=== PATIENT | male | born 1955 | race Two or more races ===

== ENCOUNTER → 2017-10-04 12:53 | Outpatient (POV) | payer MEDICAID, SELFPAY ==
[2017-10-04 13:00] VITALS: BP 125/78; PULSE 84; RESP 16; TEMP 36.3; O2SAT 97; BMI 23.9
--- NOTE | 2017-10-04 13:35 | HMH.PMCON ---
Assessment and Plan (1) Intervertebral disc protrusion Current visit: Yes Status: Chronic Category: Medical (2) Degenerative disc disease, cervical Current visit: Yes Status: Chronic Category: Medical Code(s): M50.30 - Other cervical disc degeneration, unspecified cervical region (3) Cervical radiculopathy Current visit: Yes Status: Chronic Category: Medical Code(s): M54.12 - Radiculopathy, cervical region - Assessment and plan all Dx Assessment and Plan for all problems:: We will plan a cervical epidural steroid injection at C5-C6. Patient is interested in injective therapies. Patient has tried and failed physical therapy along with anti-inflammatory medications. Giving the patient's symptomology and pathology on MRI believe this injection would be very helpful and some long-term relief of his pain symptoms. We will follow-up with him 2 weeks after his injection. This note was dictated using voice recognition software and may contain errors or omissions HPI - Data of Consult Consult date: 10/04/17 Requesting Physician: Pennie Trevizo APRN Primary Care Provider: Katelyn Fortune MD Family Provider: Alexa Kaur MD - Consult Narrative Reason for consult: Neck pain, right arm pain History of present illness: Mr. Harshil Paredes is a 62 year old male who presents today with a complaint of neck pain and right arm pain. Patient has a torn rotator cuff on the right side. He is currently being evaluated by or so for potential repair. Patient is seen Dr. Sultana in the past however at the time he was not a surgical candidate. Patient does have an MRI with noted pathology at his neck. Patient does have pain in the base of his neck radiating down all the way to the fingertips on his right hand. Patient states he has numbness and tingling at times also he has weakness at times. Patient rates his pain a 6 out of 10 today. Patient has tried physical therapy in the past with minimal relief. Patient also is taking anti-inflammatories. CC: Pennie Trevizo APRN [facility] History I have reviewed the patient's past medical history: Yes Medical History: Denies:: Cancer, Diabetes Mellitus Type 1, Diabetes Mellitus Type 2, MRSA Other Medical History: Reports: Arthritis, Other Other Surgeries: Yes: No Previous Surgery Amputation: No Fractures: No - *Social History Educational Level: Attended Grade School Smoking Status: Never smoker Alcohol Intake: never Substance Use Type: denies use Occupational Status: unemployed Housing: apartment Household Members: spouse - Psychiatric History Expresses thoughts of harming self/others: None Suicide Plan Description: No Plan *Family Hx:: No significant family history Review of Systems - Review of Systems ROS General: no recent weight change, no fever, no sleep disturbances Respiratory: no cough, no shortness of air, no recurring pulmonary infections Cardiovascular/Peripheral Vascular: No chest pain, No palpitations, no edema, no shortness of breath. Gastrointestinal: no incontinence, normal bowel movements reported Genitourinary: no incontinence Musculoskeletal: Neck pain, right shoulder pain, right arm pain Psychiatric: normal mood/ affect, [denies depression], [denies anxiety] Neurological: Weakness at times in right upper extremity, [denies balance issues] Meds Home Medications Medication Instructions Recorded Confirmed Type Naproxen 500 mg PO NEEDED PRN 10/04/17 10/04/17 History Allergies Allergy/AdvReac Type Severity Reaction Status Date / Time No Known Allergies Allergy Verified 09/23/17 15:50 Objective Vital signs: Temp Pulse Resp BP Pulse Ox 97.4 F L 84 16 125/78 97 10/04/17 13:00 10/04/17 13:00 10/04/17 13:00 10/04/17 13:00 10/04/17 13:00 Narrative: Physical Exam General: Alert and oriented x3, no acute distress, pleasant and cooperative, [on room air] Lungs: Resps E
--- NOTE | 2017-10-04 13:40 | P.CONS_ITS ---
Assessment and Plan (1) Intervertebral disc protrusion Current visit: Yes Status: Chronic Category: Medical (2) Degenerative disc disease, cervical Current visit: Yes Status: Chronic Category: Medical Code(s): M50.30 - Other cervical disc degeneration, unspecified cervical region (3) Cervical radiculopathy Current visit: Yes Status: Chronic Category: Medical Code(s): M54.12 - Radiculopathy, cervical region - Assessment and plan all Dx Assessment and Plan for all problems:: We will plan a cervical epidural steroid injection at C5-C6. Patient is interested in injective therapies. Patient has tried and failed physical therapy along with anti-inflammatory medications. Giving the patient's symptomology and pathology on MRI believe this injection would be very helpful and some long-term relief of his pain symptoms. We will follow-up with him 2 weeks after his injection. This note was dictated using voice recognition software and may contain errors or omissions HPI - Data of Consult Consult date: 10/04/17 Requesting Physician: Pennie Trevizo APRN Primary Care Provider: Katelyn Fortune MD Family Provider: Alexa Kaur MD - Consult Narrative Reason for consult: Neck pain, right arm pain History of present illness: Mr. Harshil Paredes is a 62 year old male who presents today with a complaint of neck pain and right arm pain. Patient has a torn rotator cuff on the right side. He is currently being evaluated by or so for potential repair. Patient is seen Dr. Sultana in the past however at the time he was not a surgical candidate. Patient does have an MRI with noted pathology at his neck. Patient does have pain in the base of his neck radiating down all the way to the fingertips on his right hand. Patient states he has numbness and tingling at times also he has weakness at times. Patient rates his pain a 6 out of 10 today. Patient has tried physical therapy in the past with minimal relief. Patient also is taking anti-inflammatories. CC: Pennie Trevizo APRN [facility] History I have reviewed the patient's past medical history: Yes Medical History: Denies:: Cancer, Diabetes Mellitus Type 1, Diabetes Mellitus Type 2, MRSA Other Medical History: Reports: Arthritis, Other Other Surgeries: Yes: No Previous Surgery Amputation: No Fractures: No - *Social History Educational Level: Attended Grade School Smoking Status: Never smoker Alcohol Intake: never Substance Use Type: denies use Occupational Status: unemployed Housing: apartment Household Members: spouse - Psychiatric History Expresses thoughts of harming self/others: None Suicide Plan Description: No Plan *Family Hx:: No significant family history Review of Systems - Review of Systems ROS General: no recent weight change, no fever, no sleep disturbances Respiratory: no cough, no shortness of air, no recurring pulmonary infections Cardiovascular/Peripheral Vascular: No chest pain, No palpitations, no edema, no shortness of breath. Gastrointestinal: no incontinence, normal bowel movements reported Genitourinary: no incontinence Musculoskeletal: Neck pain, right shoulder pain, right arm pain Psychiatric: normal mood/ affect, [denies depression], [denies anxiety] Neurological: Weakness at times in right upper extremity, [denies balance issues ] Meds Home Medications Medication Instructions Recorded Confirmed Type Naproxen 500 mg PO NEEDED PRN 10/04/17 10/04/17 History
== END ==
PROVIDERS: Family Provider Family Medicine; PCP Family Medicine; Visit Provider Clinical Nurse Specialist Family Health
DX: M50.30 Other cervical disc degeneration, unspecified cervical region (principal); M54.12 Radiculopathy, cervical region
CPT/HCPCS: 99202

== ENCOUNTER 2017-10-15 15:23 | Day surgery (SDC) | payer MEDICAID, SELFPAY ==
[2017-10-15 16:04] VITALS: BP 121/76; PULSE 71; RESP 18; TEMP 36.5; O2SAT 97; BMI 23.9
[2017-10-15 16:56] VITALS: BP 117/78; PULSE 68; RESP 20
--- NOTE | 2017-10-15 16:57 | HMH.PMPROC ---
- Procedure Date: 10/15/17 Time: 17:00 Anesthesiologist:: Clark Pete MD Complications:: None Pre-procedure Diagnosis:: Degenerative disc disease of the cervical spine with cervical radiculopathy Post-procedure Diagnosis:: Same Indications for Procedure:: Patient is a pleasant 62-year-old male who presents today for a cervical epidural steroid injection. Patient rates his pain at a 6 out of 10 today. Patient has pain at the base of his neck radiating down all the way to his fingertips on his right hand. Patient has numbness and tingling at times and weakness at times. Patient presents today for cervical epidural steroid injection at C5-C6. Patient has tried and failed physical therapy as an anti-inflammatory medications. Patient understands risks and benefits and wants to proceed with the procedure. Procedure Details:: Cervical epidural steroid injection under fluoroscopy Informed consent was obtained and the risks and benefits of the procedure was explained to the patient. The patient was taken to the procedure room placed prone on the procedure table. The neck was prepped using ChloraPrep. The skin and subcutaneous tissues were anesthetized using lidocaine. I placed a 18-gauge epidural needle into the C5-C6 interspace and advanced using [id number] to air and fluoroscopic guidance. After confirmation of needle placement in the epidural space with dye, I injected 3 mL's lidocaine 1.5% and Depo-Medrol 80 mg. The patient tolerated the procedure well with no complications. Plan and Disposition:: We will follow-up with this patient in 2-3 weeks in our clinic and reassess his symptoms at that time. Patient has been instructed to call our office if there are any issues before his appointment.
[2017-10-15 16:59] VITALS: BP 118/85; PULSE 70; RESP 20
--- NOTE | 2017-10-15 17:00 | P.PCN_ITS ---
- Procedure Date: 10/15/17 Time: 17:00 Anesthesiologist:: Clark Pete MD Complications:: None Pre-procedure Diagnosis:: Degenerative disc disease of the cervical spine with cervical radiculopathy Post-procedure Diagnosis:: Same Indications for Procedure:: Patient is a pleasant 62-year-old male who presents today for a cervical epidural steroid injection. Patient rates his pain at a 6 out of 10 today. Patient has pain at the base of his neck radiating down all the way to his fingertips on his right hand. Patient has numbness and tingling at times and weakness at times. Patient presents today for cervical epidural steroid injection at C5-C6. Patient has tried and failed physical therapy as an anti- inflammatory medications. Patient understands risks and benefits and wants to proceed with the procedure. Procedure Details:: Cervical epidural steroid injection under fluoroscopy Informed consent was obtained and the risks and benefits of the procedure was explained to the patient. The patient was taken to the procedure room placed prone on the procedure table. The neck was prepped using ChloraPrep. The skin and subcutaneous tissues were anesthetized using lidocaine. I placed a 18- gauge epidural needle into the C5-C6 interspace and advanced using loss-of- resistance to air and fluoroscopic guidance. After confirmation of needle placement in the epidural space with dye, I injected 3 mL's lidocaine 1.5% and Depo-Medrol 80 mg. The patient tolerated the procedure well with no complications. Plan and Disposition:: We will follow-up with this patient in 2-3 weeks in our clinic and reassess his symptoms at that time. Patient has been instructed to call our office if there are any issues before his appointment.
[2017-10-15 17:04] VITALS: BP 111/72; PULSE 77; RESP 18; O2SAT 98
== END 2017-10-15 17:10 | disposition home or self-care (01) ==
PROVIDERS: Family Provider Family Medicine; PCP Family Medicine; Visit Provider Anesthesiology
DX: M50.10 Cervical disc disorder with radiculopathy, unspecified cervical region (principal)
CPT/HCPCS: 62321; J1040; Q9966

== ENCOUNTER → 2017-10-21 14:05 | Outpatient (CLI) | payer MEDICAID, SELFPAY ==
--- NOTE | 2017-10-21 14:08 | MR_ITS ---
MR shoulder RT wo con HISTORY: Right shoulder pain with tingling and numbness in right hand, limited range of motion ITS.REASON: Rotator cuff tear ORDERING PHYSICIAN: Jose Sawyer MD PATIENT AGE: 62 years COMPARISON: 01/27/2017 MRI TECHNIQUE: Standard multiplanar multiecho sequences are performed without contrast. FINDINGS: There is generalized motion artifact. Hypertrophic changes once again noted of the acromioclavicular joint with subacromial fluid noted and subacromial stenosis as before. There is thickening of the supraspinatus tendon with increased T2 signal consistent with tendinopathy/tendinosis. The previously noted full-thickness tear of the posterior aspect of the supraspinatus tendon is once again noted. A complete tear with tendinous and muscle retraction is not apparent. Small amount fluid is present in the subdeltoid region. Bicipital tendon is in place. Subscapularis and teres minor tendons are intact. No obvious labral tear. IMPRESSION: 1. Acromioclavicular arthropathy with subacromial stenosis. 2. Tendinopathy/tendinosis of the supraspinatus tendon. The supraspinatus tendon thickening is slightly worse on today's exam. Small amount fluid is present in the subacromial region and subdeltoid region and in the subcoracoid region. 3. Full-thickness tear involves the posterior aspect of the supraspinatus slightly more prominent however, a complete tear with tendinous and muscle retraction not present.
== END ==
PROVIDERS: Family Provider Family Medicine; PCP Family Medicine; Visit Provider Orthopaedic Surgery
DX: M75.101 Unspecified rotator cuff tear or rupture of right shoulder, not specified as traumatic (principal)
CPT/HCPCS: 73221

== ENCOUNTER → 2017-11-01 10:02 | Outpatient (POV) | payer MEDICAID, SELFPAY ==
[2017-11-01 10:59] VITALS: BP 124/85; PULSE 77; RESP 18; TEMP 36.4; O2SAT 96; BMI 23.9
--- NOTE | 2017-11-01 11:18 | HMH.PAINSOAP ---
[place] Pain Management SOAP Note Subjective:: Patient is a pleasant 62-year-old male who presents today for follow-up apical epidural steroid injection. Patient states that he had 4-5 days that where really good with no radicular pain. Patient then had a flare in his pain symptoms and an increase in muscle spasms. Patient has not taken anything for this. Patient rates his pain a 6 out of 10 today. Patient is not on any anti-inflammatories at this time. Patient is interested in continuing with injective therapy however I feel like we need to get him back to baseline. ROS General: no recent weight change, no fever, no sleep disturbances Respiratory: no cough, no shortness of air, no recurring pulmonary infections Cardiovascular/Peripheral Vascular: No chest pain, No palpitations, no edema, no shortness of breath. Gastrointestinal: no incontinence, normal bowel movements reported Genitourinary: no incontinence Musculoskeletal: Neck pain, right arm pain, muscle spasms Psychiatric: normal mood/ affect, [denies depression], [denies anxiety] Neurological: [denies weakness in extremities], [denies balance issues] Objective:: Physical Exam General: Alert and oriented x3, no acute distress, pleasant and cooperative, [on room air] Lungs: Resps E/U, Symmetrical chest expansion, Eyes: PERRL Musculoskeletal: Flexion and extension of cervical spine somewhat guarded secondary to pain, deep tendon reflexes normal, strength in upper and lower extremities [5/5], normal gait noted Neurological: speech clear, operations manager station 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 twice daily for the patient we will also start him on prednisone 20 mg 1 p.o. twice daily for 5 days. We will also call in Xanax 4 mg 1 tab p.o. 3 times daily. Patient understands that all these medications are short-term to help with his flare. Patient is interested in continuing with another cervical epidural steroid injection at C5-C6 to the relief that he did receive right after his injection I believe that this would be a good idea. We will schedule him one after he is not having a flare in pain. This note was dictated using voice recognition software and may contain errors or omissions
--- NOTE | 2017-11-01 11:22 | P.CONS_ITS ---
[facility] Pain Management SOAP Note Subjective:: Patient is a pleasant 62-year-old male who presents today for follow-up apical epidural steroid injection. Patient states that he had 4-5 days that where really good with no radicular pain. Patient then had a flare in his pain symptoms and an increase in muscle spasms. Patient has not taken anything for this. Patient rates his pain a 6 out of 10 today. Patient is not on any anti- inflammatories at this time. Patient is interested in continuing with injective therapy however I feel like we need to get him back to baseline. ROS General: no recent weight change, no fever, no sleep disturbances Respiratory: no cough, no shortness of air, no recurring pulmonary infections Cardiovascular/Peripheral Vascular: No chest pain, No palpitations, no edema, no shortness of breath. Gastrointestinal: no incontinence, normal bowel movements reported Genitourinary: no incontinence Musculoskeletal: Neck pain, right arm pain, muscle spasms Psychiatric: normal mood/ affect, [denies depression], [denies anxiety] Neurological: [denies weakness in extremities], [denies balance issues] Objective:: Physical Exam General: Alert and oriented x3, no acute distress, pleasant and cooperative, [ on room air] Lungs: Resps E/U, Symmetrical chest expansion, Eyes: PERRL Musculoskeletal: Flexion and extension of cervical spine somewhat guarded secondary to pain, deep tendon reflexes normal, strength in upper and lower extremities [5/5], normal gait noted Neurological: speech clear, 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 twice daily for the patient we will also start him on prednisone 20 mg 1 p.o. twice daily for 5 days. We will also call in Xanax 4 mg 1 tab p.o. 3 times daily. Patient understands that all these medications are short-term to help with his flare. Patient is interested in continuing with another cervical epidural steroid injection at C5-C6 to the relief that he did receive right after his injection I believe that this would be a good idea. We will schedule him one after he is not having a flare in pain. This note was dictated using voice recognition software and may contain errors or omissions
--- NOTE | 2017-11-02 13:12 | PC.PHONENOTE ---
11/01/17-called in [facility] for Zanaflex 4mg TID with no refills, Naproxen 500mg BID with no refills and Prednisone 20mg BID x5 days, no refills, to pt pharmacy
== END ==
PROVIDERS: Family Provider Family Medicine; PCP Family Medicine; Visit Provider Clinical Nurse Specialist Family Health
DX: M54.12 Radiculopathy, cervical region (principal)
CPT/HCPCS: 99212

== ENCOUNTER → 2017-12-13 14:29 | Outpatient (POV) | payer MEDICAID, SELFPAY ==
[2017-12-13 14:33] VITALS: BP 113/88; PULSE 88; BMI 23.9
--- NOTE | 2017-12-13 15:08 | HMH.PAINSOAP ---
[facility] Pain Management SOAP Note Subjective:: Patient is a pleasant 62-year-old male who we are treating for neck pain. Patient has had 2 rounds of cervical epidural steroid injections. Patient states that his neck pain has gotten better however he is having some myofascial pain in his right shoulder and trapezius. Patient states that he is on an anti-inflammatory. Patient states that his pain flares when he is working. He rates his pain a 5 out of 10 today. Patient does have some stomach upset with his Zanaflex. ROS General: no recent weight change, no fever, no sleep disturbances Respiratory: no cough, no shortness of air, no recurring pulmonary infections Cardiovascular/Peripheral Vascular: No chest pain, No palpitations, no edema, no shortness of breath. Gastrointestinal: no incontinence, normal bowel movements reported Genitourinary: no incontinence Musculoskeletal: Myofascial pain, neck pain Psychiatric: normal mood/ affect, [denies depression], [denies anxiety] Neurological: [denies weakness in extremities], [denies balance issues] Objective:: Physical Exam General: Alert and oriented x3, no acute distress, pleasant and cooperative, [on room air] Lungs: Resps E/U, Symmetrical chest expansion, Eyes: PERRL Musculoskeletal: Flexion and extension of cervical spine somewhat guarded secondary to pain, deep tendon reflexes normal, strength in upper and lower extremities [5/5], normal gait noted, palpable trigger points right trapezius Neurological: speech clear, 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 I believe that this would be very beneficial given his symptomology. Patient has tried and failed physical therapy, medications, anti-inflammatories. I will follow-up with this patient after his injections. Patient and I discussed potential neurosurgical evaluation if this does not seem to help. I did give the patient a Flector patch sample. If this is helpful we will call this into the pharmacy. This note was dictated using voice recognition software and may contain errors or omissions
--- NOTE | 2017-12-13 15:12 | P.CONS_ITS ---
[facility] Pain Management SOAP Note Subjective:: Patient is a pleasant 62-year-old male who we are treating for neck pain. Patient has had 2 rounds of cervical epidural steroid injections. Patient states that his neck pain has gotten better however he is having some myofascial pain in his right shoulder and trapezius. Patient states that he is on an anti-inflammatory. Patient states that his pain flares when he is working. He rates his pain a 5 out of 10 today. Patient does have some stomach upset with his Zanaflex. ROS General: no recent weight change, no fever, no sleep disturbances Respiratory: no cough, no shortness of air, no recurring pulmonary infections Cardiovascular/Peripheral Vascular: No chest pain, No palpitations, no edema, no shortness of breath. Gastrointestinal: no incontinence, normal bowel movements reported Genitourinary: no incontinence Musculoskeletal: Myofascial pain, neck pain Psychiatric: normal mood/ affect, [denies depression], [denies anxiety] Neurological: [denies weakness in extremities], [denies balance issues] Objective:: Physical Exam General: Alert and oriented x3, no acute distress, pleasant and cooperative, [ on room air] Lungs: Resps E/U, Symmetrical chest expansion, Eyes: PERRL Musculoskeletal: Flexion and extension of cervical spine somewhat guarded secondary to pain, deep tendon reflexes normal, strength in upper and lower extremities [5/5], normal gait noted, palpable trigger points right trapezius Neurological: speech clear, 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 I believe that this would be very beneficial given his symptomology. Patient has tried and failed physical therapy, medications, anti-inflammatories. I will follow- up with this patient after his injections. Patient and I discussed potential neurosurgical evaluation if this does not seem to help. I did give the patient a Flector patch sample. If this is helpful we will call this into the pharmacy. This note was dictated using voice recognition software and may contain errors or omissions
== END ==
PROVIDERS: Family Provider Family Medicine; PCP Family Medicine; Visit Provider Clinical Nurse Specialist Family Health
DX: M79.1 Myalgia (principal); M50.30 Other cervical disc degeneration, unspecified cervical region
CPT/HCPCS: 99212

== ENCOUNTER → 2018-01-10 14:34 | Outpatient (POV) | payer MEDICAID, SELFPAY ==
[2018-01-10 15:05] VITALS: BP 131/76; PULSE 72; RESP 18; O2SAT 98; BMI 24.6
--- NOTE | 2018-01-10 16:04 | HMH.PAINSOAP ---
[facility] Pain Management SOAP Note Subjective:: Patient is a pleasant 62-year-old male who we are treating for pain in his neck. Patient had 2 rounds of cervical epidural steroid injections and then he had trigger point injections of his neck and right upper trapezius. Patient states he had significant relief with this. Patient rates his pain a 2 out of 10 today. All of the numbness in his arm has resolved. Patient would like to continue taking his naproxen 500 mg 1 tab p.o. daily. I believe that this would be beneficial for him. Patient would like to follow-up on an as-needed basis. ROS General: no recent weight change, no fever, no sleep disturbances Respiratory: no cough, no shortness of air, no recurring pulmonary infections Cardiovascular/Peripheral Vascular: No chest pain, No palpitations, no edema, no shortness of breath. Gastrointestinal: no incontinence, normal bowel movements reported Genitourinary: no incontinence Musculoskeletal: Neck pain Psychiatric: normal mood/ affect Neurological: [denies weakness in extremities], [denies balance issues] Objective:: Physical Exam General: Alert and oriented x3, no acute distress, pleasant and cooperative, [on room air] Lungs: Resps E/U, Symmetrical chest expansion, Eyes: PERRL Musculoskeletal: Flexion and extension of cervical spine somewhat guarded secondary to pain, deep tendon reflexes normal, strength in upper and lower extremities [5/5], normal gait noted Neurological: speech clear, mushroom grower equal, no gross sensory deficits Assessment:: 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 Patient will continue his naproxen 500 mg 1 tab p.o. daily. Patient has been instructed to call our office if he has any issues prior to his next appointment. This note was dictated using voice recognition software and may contain errors or omissions
--- NOTE | 2018-01-10 16:07 | P.CONS_ITS ---
[facility] Pain Management SOAP Note Subjective:: Patient is a pleasant 62-year-old male who we are treating for pain in his neck. Patient had 2 rounds of cervical epidural steroid injections and then he had trigger point injections of his neck and right upper trapezius. Patient states he had significant relief with this. Patient rates his pain a 2 out of 10 today. All of the numbness in his arm has resolved. Patient would like to continue taking his naproxen 500 mg 1 tab p.o. daily. I believe that this would be beneficial for him. Patient would like to follow-up on an as- needed basis. ROS General: no recent weight change, no fever, no sleep disturbances Respiratory: no cough, no shortness of air, no recurring pulmonary infections Cardiovascular/Peripheral Vascular: No chest pain, No palpitations, no edema, no shortness of breath. Gastrointestinal: no incontinence, normal bowel movements reported Genitourinary: no incontinence Musculoskeletal: Neck pain Psychiatric: normal mood/ affect Neurological: [denies weakness in extremities], [denies balance issues] Objective:: Physical Exam General: Alert and oriented x3, no acute distress, pleasant and cooperative, [ on room air] Lungs: Resps E/U, Symmetrical chest expansion, Eyes: PERRL Musculoskeletal: Flexion and extension of cervical spine somewhat guarded secondary to pain, deep tendon reflexes normal, strength in upper and lower extremities [5/5], normal gait noted Neurological: speech clear, paid search marketing strategist equal, no gross sensory deficits Assessment:: 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 Patient will continue his naproxen 500 mg 1 tab p.o. daily. Patient has been instructed to call our office if he has any issues prior to his next appointment. This note was dictated using voice recognition software and may contain errors or omissions
== END ==
PROVIDERS: Family Provider Family Medicine; PCP Family Medicine; Visit Provider Clinical Nurse Specialist Family Health
DX: M54.12 Radiculopathy, cervical region (principal)
CPT/HCPCS: 99212

== ENCOUNTER → 2018-11-08 09:48 | Outpatient (POV) | payer MEDICAID, SELFPAY ==
[2018-11-08 10:06] VITALS: BP 121/86; PULSE 81; RESP 18; O2SAT 98; BMI 24.7
--- NOTE | 2018-11-08 10:12 | HMH.PAINSOAP ---
[facility] Pain Management SOAP Note Subjective:: he is extremely pleasant 63-year-old male who we are treating for pain in his neck and shoulder. Patient had 2 rounds of cervical epidural steroid injections and one round of trigger point injections last year and has done extremely well with that. Patient states he feels that he needs another round of upper trapezius trigger point injections. He rates his pain 8 out of 10 today. He states that all of the numbness in his arm has resolved. ROS General: no recent weight change, no fever, no sleep disturbances Respiratory: no cough, no shortness of air, no recurring pulmonary infections Cardiovascular/Peripheral Vascular: No chest pain, No palpitations, no edema, no shortness of breath. Gastrointestinal: no incontinence, normal bowel movements reported Genitourinary: no incontinence Musculoskeletal: Myofascial pain syndrome Psychiatric: normal mood/ affect Neurological: [denies weakness in extremities], [denies balance issues] Objective:: Physical Exam General: Alert and oriented x3, no acute distress, pleasant and cooperative, [on room air] Lungs: Resps E/U, Symmetrical chest expansion, Eyes: PERRL Musculoskeletal: Flexion and extension of cervical spine somewhat guarded secondary to pain, deep tendon reflexes normal, strength in upper and lower extremities [5/5], normal gait noted Neurological: speech clear, tower technician equal, no gross sensory deficits Assessment:: Degenerative disc disease cervical spine with cervical radiculopathy along with myofascial pain syndrome Plan:: We will schedule right upper trapezius trigger point injections. Patient got a year relief of that this last time and is doing well. He would like to repeat this. Dr. Pete has reviewed this note and agrees with this plan of care. This note was dictated using voice recognition software and may contain errors or omissions
== END ==
PROVIDERS: PCP Nurse Practitioner Family; Visit Provider Clinical Nurse Specialist Family Health
DX: M50.10 Cervical disc disorder with radiculopathy, unspecified cervical region (principal); M79.18 Myalgia, other site
CPT/HCPCS: 99212

== ENCOUNTER → 2018-12-12 14:29 | Outpatient (POV) | payer MEDICAID, SELFPAY ==
[2018-12-12 14:36] VITALS: BP 130/88; PULSE 78; RESP 18; O2SAT 99; BMI 24.6
--- NOTE | 2018-12-12 15:45 | HMH.PAINSOAP ---
[facility] Pain Management SOAP Note Subjective:: Patient is a pleasant 63-year-old male who presents today for follow-up after trigger point injections. Patient is doing well except he is having some increased pain in his AC joint along with his shoulder. Patient does have an MRI and was seen by Ortho for his shoulder pain. Patient has had injections in the past with good relief. I do believe he would benefit from an AC joint injection along with intra-articular injection. Patient and I discussed this and he is interested in moving forward with this. Patient is continuing a home stretching program along with anti-inflammatories. ROS General: no recent weight change, no fever, no sleep disturbances Respiratory: no cough, no shortness of air, no recurring pulmonary infections Cardiovascular/Peripheral Vascular: No chest pain, No palpitations, no edema, no shortness of breath. Gastrointestinal: no incontinence, normal bowel movements reported Genitourinary: no incontinence Musculoskeletal: Right shoulder pain Psychiatric: normal mood/ affect Neurological: [denies weakness in extremities], [denies balance issues] Objective:: Physical Exam General: Alert and oriented x3, no acute distress, pleasant and cooperative, [on room air] Lungs: Resps E/U, Symmetrical chest expansion, Eyes: PERRL Musculoskeletal: Range of motion right shoulder somewhat guarded secondary to pain, deep tendon reflexes normal, strength in upper and lower extremities [5/5], normal gait noted, extreme tenderness over right AC joint Neurological: speech clear, hospice spiritual care coordinator equal, no gross sensory deficits Assessment:: Right shoulder pain, osteoarthritis, tendinitis Plan:: We will set the patient up for a right intra-articular shoulder injection right AC joint injection. I will follow-up with the patient after this and reassess his symptoms at that time. He has been instructed to call the office if he has any issues prior to his next appointment. Dr. Pete has reviewed this note and agrees with this plan of care. This note was dictated using voice recognition software and may contain errors or omissions
== END ==
PROVIDERS: PCP Family Medicine; Visit Provider Clinical Nurse Specialist Family Health
DX: M25.511 Pain in right shoulder (principal); M19.90 Unspecified osteoarthritis, unspecified site; M77.9 Enthesopathy, unspecified
CPT/HCPCS: 99212

== ENCOUNTER 2018-12-23 10:18 | Day surgery (SDC) | payer MEDICAID, SELFPAY ==
[2018-12-23 10:32] VITALS: BP 120/73; PULSE 64; RESP 16; TEMP 36.6; O2SAT 98; BMI 24.6
[2018-12-23 11:09] VITALS: BP 112/78; BP 120/78; PULSE 75; PULSE 78; RESP 18; O2SAT 98
--- NOTE | 2018-12-23 11:10 | HMH.PMPROC ---
- Procedure Date: 12/23/18 Time: 11:10 Anesthesiologist:: Clark Pete MD Complications:: None Pre-procedure Diagnosis:: Right shoulder pain with AC joint arthritis and degenerative joint disease Post-procedure Diagnosis:: Same Indications for Procedure:: This patient is a pleasant 63-year-old male who we are treating for right shoulder pain. He has had injections in the past with good relief of his pain symptoms. We will do AC joint injection along with intra-articular injection and suprascapular nerve block today. Procedure Details:: Right shoulder injection Informed consent was obtained and the risk and benefits of the procedure was explained to the patient. Patient was taken to the procedure room. The right shoulder was prepped using ChloraPrep. A 25-gauge needle was used to inject 10 mL bupivacaine 0.25% and Depo-Medrol 40 mg into the right AC joint, intra-articular joint and right suprascapular nerve. Patient tolerated the procedure well with no complications. Plan and Disposition:: We will follow-up with him in 2 weeks. Will reevaluate symptoms at that time.
--- NOTE | 2018-12-23 11:13 | P.PCN_ITS ---
- Procedure Date: 12/23/18 Time: 11:10 Anesthesiologist:: Clark Pete MD Complications:: None Pre-procedure Diagnosis:: Right shoulder pain with AC joint arthritis and degenerative joint disease Post-procedure Diagnosis:: Same Indications for Procedure:: This patient is a pleasant 63-year-old male who we are treating for right shoulder pain. He has had injections in the past with good relief of his pain symptoms. We will do AC joint injection along with intra-articular injection and suprascapular nerve block today. Procedure Details:: Right shoulder injection Informed consent was obtained and the risk and benefits of the procedure was explained to the patient. Patient was taken to the procedure room. The right shoulder was prepped using ChloraPrep. A 25-gauge needle was used to inject 10 mL bupivacaine 0.25% and Depo-Medrol 40 mg into the right AC joint, intra- articular joint and right suprascapular nerve. Patient tolerated the procedure well with no complications. Plan and Disposition:: We will follow-up with him in 2 weeks. Will reevaluate symptoms at that time.
[2018-12-23 11:18] VITALS: BP 129/72; PULSE 64; RESP 18; TEMP 36.7; O2SAT 99
== END 2018-12-23 11:19 | disposition home or self-care (01) ==
LOC: SC.PAINP 10:19
PROVIDERS: PCP Family Medicine; Visit Provider Anesthesiology
DX: M19.011 Primary osteoarthritis, right shoulder (principal)
CPT/HCPCS: 20610; J1030

== ENCOUNTER → 2019-01-09 12:31 | Outpatient (POV) | payer MEDICAID, SELFPAY ==
[2019-01-09 13:23] VITALS: BP 137/81; PULSE 82; RESP 18; O2SAT 98; BMI 24.6
--- NOTE | 2019-01-09 13:24 | HMH.PAINSOAP ---
[facility] Pain Management SOAP Note Subjective:: Patient is a pleasant 63-year-old male who presents today for follow-up for right intra-articular shoulder joint injection. The patient reports that he has 2 out of 10 pain today and the injection was 90% effective. He does say that he is feeling much better and does not feel like he needs further treatment to the area at this time. He does complain of recent dizziness and asked if the injection would cause dizziness weeks after the injection. We discussed him going back to his primary care physician to discuss this. Patient is continuing a home stretching program and anti-inflammatories. ROS General: no recent weight change, no fever, no sleep disturbances Respiratory: no cough, no shortness of air, no recurring pulmonary infections Cardiovascular/Peripheral Vascular: No chest pain, No palpitations, no edema, no shortness of breath. Gastrointestinal: no incontinence, normal bowel movements reported Genitourinary: no incontinence Musculoskeletal: Right shoulder pain Psychiatric: normal mood/ affect, [denies depression], [denies anxiety] Neurological: [denies weakness in extremities], [denies balance issues] Objective:: Physical Exam General: Alert and oriented x3, no acute distress, pleasant and cooperative, [on room air] Lungs: Resps E/U, Symmetrical chest expansion, Eyes: PERRL Musculoskeletal: range of motion of right arm somewhat guarded secondary to pain, deep tendon reflexes normal, strength in upper and lower extremities [5/5], normal gait noted Neurological: speech clear, ethnographic materials conservator equal, no gross sensory deficits Assessment:: Right shoulder pain with AC joint arthritis and degenerative joint disease Plan:: Patient is doing well overall. He is continuing a home stretching program and anti-inflammatories the patient will follow-up as needed. Instructed to call the office if he has any issues. Dr. Pete has reviewed this note and agrees with this plan of care. This note was dictated using voice recognition software and may contain errors or omissions
--- NOTE | 2019-01-09 13:27 | P.CONS_ITS ---
[facility] Pain Management SOAP Note Subjective:: Patient is a pleasant 63-year-old male who presents today for follow-up for right intra-articular shoulder joint injection. The patient reports that he has 2 out of 10 pain today and the injection was 90% effective. He does say that he is feeling much better and does not feel like he needs further treatment to the area at this time. He does complain of recent dizziness and asked if the injection would cause dizziness weeks after the injection. We discussed him going back to his primary care physician to discuss this. Patient is continuing a home stretching program and anti-inflammatories. ROS General: no recent weight change, no fever, no sleep disturbances Respiratory: no cough, no shortness of air, no recurring pulmonary infections Cardiovascular/Peripheral Vascular: No chest pain, No palpitations, no edema, no shortness of breath. Gastrointestinal: no incontinence, normal bowel movements reported Genitourinary: no incontinence Musculoskeletal: Right shoulder pain Psychiatric: normal mood/ affect, [denies depression], [denies anxiety] Neurological: [denies weakness in extremities], [denies balance issues] Objective:: Physical Exam General: Alert and oriented x3, no acute distress, pleasant and cooperative, [on room air] Lungs: Resps E/U, Symmetrical chest expansion, Eyes: PERRL Musculoskeletal: range of motion of right arm somewhat guarded secondary to pain, deep tendon reflexes normal, strength in upper and lower extremities [5/5], normal gait noted Neurological: speech clear, munitions worker equal, no gross sensory deficits Assessment:: Right shoulder pain with AC joint arthritis and degenerative joint disease Plan:: Patient is doing well overall. He is continuing a home stretching program and anti-inflammatories the patient will follow-up as needed. Instructed to call the office if he has any issues. Dr. Pete has reviewed this note and agrees with this plan of care. This note was dictated using voice recognition software and may contain errors or omissions
== END ==
PROVIDERS: PCP Nurse Practitioner Family; Visit Provider Clinical Nurse Specialist Family Health
DX: M19.011 Primary osteoarthritis, right shoulder (principal)
CPT/HCPCS: 99212

== ENCOUNTER → 2019-02-01 08:31 | Outpatient (CLI) | payer MEDICAID, SELFPAY ==
--- NOTE | 2019-02-01 08:41 | MR_ITS ---
MR head/brain wo con HISTORY: ITS.REASON: NEW PERSISTENT DAILY HEADACHE, DIZZINESS ORDERING PHYSICIAN: Tessa Solares APRN PATIENT AGE: 63 years Comparison: None TECHNIQUE: Standard multiplanar multiecho sequences are performed without contrast. FINDINGS: No midline shift, mass effect, intracranial hemorrhage, or hydrocephalus is evident. No evidence of acute infarction. The cerebellopontine angles, cerebellum, and brainstem are unremarkable. There are scattered periventricular and subcortical T2 white matter hyperintensities nonspecific but more commonly associated with ischemic gliotic change from microvascular disease. The pituitary, optic chiasm, corpus callosum, and craniocervical junction have an unremarkable appearance. No mastoid effusion or sinus air-fluid level. IMPRESSION: 1. No acute intracranial findings. 2. Scattered small periventricular and subcortical T2 white matter hyperintensities most commonly associated with ischemic gliotic change from microvascular disease in this age group
== END ==
PROVIDERS: PCP Nurse Practitioner Family; Visit Provider Nurse Practitioner Family
DX: G44.52 New daily persistent headache (NDPH) (principal); R42 Dizziness and giddiness
CPT/HCPCS: 70551

== ENCOUNTER 2024-11-10 18:29 | Emergency (ER) | payer MEDICARE, SELFPAY ==
[2024-11-10] VITALS (8 sets, daily range): BP systolic 107–154; BP diastolic 71–88; PULSE 76–88; RESP 14–20; TEMP 36.6–37; O2SAT 96–98; BMI 27.4
--- NOTE | 2024-11-10 18:30 | ECG_ITS ---
APPROVED REPORT Exam: Resting ECG HR:70 bpm ECG Measurements Heart Rate 70 AXES SD 173 P 43 QRSd 98 QRS 38 QT 375 T 52 QTc 396 Conclusion SINUS RHYTHM NORMAL ECG Electronically signed by : JENNIFER IRBY, 11/11/2024 00:13:56
--- NOTE | 2024-11-10 18:34 | CT_ITS ---
PROCEDURE INFORMATION: Exam: CTA Abdomen and Pelvis With Contrast Exam date and time: 11/10/2024 7:07 PM Age: 69 years old Clinical indication: Injury or trauma; Additional info: Trauma, critical injury suspected TECHNIQUE: Imaging protocol: Computed tomographic angiography of the abdomen and pelvis with contrast. Exam focused on the arteries. 3D rendering (Not supervised by radiologist): MIP and/or 3D reconstructed images were created by the technologist. Radiation optimization: All CT scans at this facility use at least one of these dose optimization techniques: automated exposure control; mA and/or kV adjustment per patient size (includes targeted exams where dose is matched to clinical indication); or iterative reconstruction. Contrast material: ISO 370; Contrast volume: 80 ml; Contrast route: INTRAVENOUS (IV); COMPARISON: CR XR PELVIS 1-2V 10/11/2024 18:38 FINDINGS: Aorta: No aortic aneurysm. No aortic dissection. Celiac trunk and mesenteric arteries: No occlusion or significant stenosis. Renal arteries: No occlusion or significant stenosis. Right iliac arteries: No occlusion or significant stenosis. Left iliac arteries: No occlusion or significant stenosis. Other arteries: Atherosclerosis. Liver: A few nonspecific low-attenuation liver lesions with the largest measuring 6 mm. Gallbladder and biliary ducts: Unremarkable. No calcified stones. No ductal dilation. Pancreas: Unremarkable. No mass. No ductal dilation. Spleen: Unremarkable. No splenomegaly. Adrenal glands: Unremarkable. No mass. Kidneys and ureters: Unremarkable. No solid mass. No hydronephrosis. Stomach and bowel: Areas of small bowel wall thickening. Colonic diverticulosis. No bowel dilation. No bowel wall thickening. Appendix: No evidence of appendicitis. Intraperitoneal space: Unremarkable. No free air. No significant fluid collection. Lymph nodes: Unremarkable. No enlarged lymph nodes. Urinary bladder: Unremarkable. No mass. Reproductive: Mildly enlarged prostate gland. Bones/joints: Degenerative changes of the spine. Soft tissues: Unremarkable. IMPRESSION: 1. No acute traumatic findings in the abdomen or pelvis. 2. A few nonspecific low-attenuation liver lesions with the largest measuring 6 mm. In a low-risk patient, this is most likely to be benign and no further follow-up is recommended. In a high-risk patient, follow-up MRI in 3-6 months is recommended (or earlier if warranted by the patient's specific clinical circumstances). (Reference: Eleonora) 3. Areas of small bowel wall thickening may be secondary to incomplete distention and/or enteritis. 4. Additional chronic/nonemergent findings as detailed above. REFERENCES: Eleonora WYMAN, et al. Management of Incidental Liver Lesions on CT: A White Paper of the ACR Incidental Findings Committee. J Am Earle Radiol. 2017;14(11):7283-2577.
--- NOTE | 2024-11-10 18:34 | CT_ITS ---
PROCEDURE INFORMATION: Exam: CT Head Without Contrast Exam date and time: 11/10/2024 6:56 PM Age: 69 years old Clinical indication: Injury or trauma; Fall; Blunt trauma (contusions or hematomas); Additional info: Trauma, critical injury suspected TECHNIQUE: Imaging protocol: Computed tomography of the head without contrast. Radiation optimization: All CT scans at this facility use at least one of these dose optimization techniques: automated exposure control; mA and/or kV adjustment per patient size (includes targeted exams where dose is matched to clinical indication); or iterative reconstruction. COMPARISON: FINDINGS: Brain: No intracranial hemorrhage. Mild atrophic changes of the ventricles and subarachnoid spaces. Mild chronic small-vessel ischemic changes noted. No mass, mass effect or midline shift. Intracranial atherosclerotic changes are noted. Cerebral ventricles: See Brain finding. Paranasal sinuses: Visualized sinuses are unremarkable. No fluid levels. Mastoid air cells: Visualized mastoid air cells are well aerated. Bones: Unremarkable. No acute fracture. Soft tissues: Unremarkable. IMPRESSION: Stable noncontrast CT brain with chronic changes. No acute intracranial abnormality.
--- NOTE | 2024-11-10 18:34 | CT_ITS ---
PROCEDURE INFORMATION: Exam: CT Thoracic Spine Without Contrast Exam date and time: 11/10/2024 6:59 PM Age: 69 years old Clinical indication: Injury or trauma; Additional info: Trauma, critical injury suspected TECHNIQUE: Imaging protocol: Computed tomography of the thoracic spine without contrast. Radiation optimization: All CT scans at this facility use at least one of these dose optimization techniques: automated exposure control; mA and/or kV adjustment per patient size (includes targeted exams where dose is matched to clinical indication); or iterative reconstruction. COMPARISON: CR XR CHEST PORTABLE 10/11/2024 18:43 FINDINGS: Bones/joints: Acute-appearing mild anterior compression fracture of T4. Soft tissues: Unremarkable. IMPRESSION: Acute-appearing mild anterior compression fracture of T4.
--- NOTE | 2024-11-10 18:34 | CT_ITS ---
PROCEDURE INFORMATION: Exam: CT Lumbar Spine Without Contrast Exam date and time: 11/10/2024 6:59 PM Age: 69 years old Clinical indication: Injury or trauma; Additional info: Trauma, critical injury suspected TECHNIQUE: Imaging protocol: Computed tomography of the lumbar spine without contrast. Radiation optimization: All CT scans at this facility use at least one of these dose optimization techniques: automated exposure control; mA and/or kV adjustment per patient size (includes targeted exams where dose is matched to clinical indication); or iterative reconstruction. COMPARISON: CR XR PELVIS 1-2V 10/11/2024 18:38 FINDINGS: Bones/joints: No acute fracture or subluxation. Osteopenia. Degenerative changes of the spine. Vasculature: Atherosclerosis. Soft tissues: Unremarkable. IMPRESSION: No acute fracture or subluxation.
--- NOTE | 2024-11-10 18:34 | CT_ITS ---
PROCEDURE INFORMATION: Exam: CT Cervical Spine Without Contrast Exam date and time: 11/10/2024 6:59 PM Age: 69 years old Clinical indication: Injury or trauma; Fall; Blunt trauma; Additional info: Trauma, critical injury suspected TECHNIQUE: Imaging protocol: Computed tomography of the cervical spine without contrast. Radiation optimization: All CT scans at this facility use at least one of these dose optimization techniques: automated exposure control; mA and/or kV adjustment per patient size (includes targeted exams where dose is matched to clinical indication); or iterative reconstruction. COMPARISON: CT HEAD/BRAIN WO CON 11/10/2024 6:56 PM FINDINGS: Bones: No evident fracture. Degenerative changes of the C-spine most pronounced at C5-C6 and C6-C7. Alignment and vertebral body heights are intact. Lungs: Lung apices are normal. Soft tissues: Unremarkable. IMPRESSION: Degenerative changes. No acute abnormality.
--- NOTE | 2024-11-10 18:34 | CT_ITS ---
PROCEDURE INFORMATION: Exam: CTA Neck With Contrast Exam date and time: 11/10/2024 7:03 PM Age: 69 years old Clinical indication: Injury or trauma; Additional info: Trauma, critical injury suspected TECHNIQUE: Imaging protocol: Computed tomographic angiography of the neck with contrast. Exam focused on the cervical segments of the vasculature. 3D rendering (Not supervised by radiologist): MIP and/or 3D reconstructed images were created by the technologist. Radiation optimization: All CT scans at this facility use at least one of these dose optimization techniques: automated exposure control; mA and/or kV adjustment per patient size (includes targeted exams where dose is matched to clinical indication); or iterative reconstruction. Contrast material: ISO 370; Contrast volume: 80 ml; Contrast route: INTRAVENOUS (IV); COMPARISON: CT CERVICAL SPINE WO CON 11/10/2024 6:59 PM FINDINGS: Limitations: Limited by artifact arising from metallic dental hardware/dental amalgam. Right common carotid artery: No stenosis. No dissection or occlusion. Right internal carotid artery: No stenosis of the extracranial segment. No dissection or occlusion. Right external carotid artery: No occlusion or stenosis of the origin. Left common carotid artery: No stenosis. No dissection or occlusion. Left internal carotid artery: No stenosis of the extracranial segment. No dissection or occlusion. Left external carotid artery: No occlusion or stenosis of the origin. Right vertebral artery: No stenosis. No dissection or occlusion. Left vertebral artery: No stenosis. No dissection or occlusion. Soft tissues: Normal. No significant soft tissue swelling. Bones/joints: Cervical spine is better evaluated on dedicated exam. There is right 1st rib fracture. Pleural spaces: No visible pneumothorax. IMPRESSION: No acute vascular pathology. REFERENCES: NASCET CRITERIA. The degree of stenosis in the cervical segment of the internal carotid artery is based on NASCET criteria. Normal is no stenosis. Mild is less than 50% stenosis. Moderate is 50-69% stenosis. Severe is 70% to 99% stenosis. Total occlusion is no detectable patent lumen.
--- NOTE | 2024-11-10 18:34 | CT_ITS ---
PROCEDURE INFORMATION: Exam: CTA Chest With Contrast Exam date and time: 11/10/2024 7:07 PM Age: 69 years old Clinical indication: Injury or trauma; Additional info: Trauma, critical injury suspected TECHNIQUE: Imaging protocol: Computed tomographic angiography of the chest with contrast. Exam focused on the arteries. 3D rendering (Not supervised by radiologist): MIP and/or 3D reconstructed images were created by the technologist. Radiation optimization: All CT scans at this facility use at least one of these dose optimization techniques: automated exposure control; mA and/or kV adjustment per patient size (includes targeted exams where dose is matched to clinical indication); or iterative reconstruction. Contrast material: ISO 370; Contrast volume: 80 ml; Contrast route: INTRAVENOUS (IV); COMPARISON: CT ANGIO CHEST 10/11/2024 19:07 FINDINGS: Pulmonary arteries: Normal. No pulmonary emboli. Aorta: Unremarkable. No aortic aneurysm. No aortic dissection. Lungs: Mild bilateral atelectasis. Pleural spaces: Unremarkable. No pneumothorax. No pleural effusion. Heart: Unremarkable. No cardiomegaly. No pericardial effusion. Mediastinal space: Small fluid in the anterior mediastinum, beneath the sternum. Lymph nodes: Unremarkable. No enlarged lymph nodes. Bones/joints: Acute-appearing comminuted fracture of the superior sternal body, immediately below the manubrium. Acute-appearing mild anterior compression fracture of T4. Soft tissues: Unremarkable. IMPRESSION: 1. Acute-appearing comminuted fracture of the superior sternal body, immediately below the manubrium. 2. Acute-appearing mild anterior compression fracture of T4. 3. Small fluid in the anterior mediastinum, beneath the sternum.
--- NOTE | 2024-11-10 18:34 | XR_ITS ---
PROCEDURE INFORMATION: Exam: XR Pelvis Exam date and time: 11/10/2024 6:38 PM Age: 69 years old Clinical indication: Injury or trauma; Fall; Blunt trauma (contusions or hematomas); Bilateral; Pelvic region TECHNIQUE: Imaging protocol: Radiologic exam of the pelvis. Views: 1 or 2 view. COMPARISON: No relevant prior studies available. FINDINGS: Bones/joints: Unremarkable. No acute fracture. Soft tissues: Unremarkable. IMPRESSION: No acute findings.
--- NOTE | 2024-11-10 18:34 | XR_ITS ---
PROCEDURE INFORMATION: Exam: XR Chest Exam date and time: 11/10/2024 6:43 PM Age: 69 years old Clinical indication: Injury or trauma; Fall; Blunt trauma (contusions or hematomas) TECHNIQUE: Imaging protocol: Radiologic exam of the chest. Views: 1 view. COMPARISON: No relevant prior studies available. FINDINGS: Lungs: Unremarkable. No consolidation. Pleural spaces: Unremarkable. No pleural effusion. No pneumothorax. Heart/Mediastinum: Unremarkable. No cardiomegaly. Bones/joints: Unremarkable. IMPRESSION: No acute findings.
--- NOTE | 2024-11-10 18:34 | CT_ITS ---
PROCEDURE INFORMATION: Exam: CTA Head With Contrast, Arteriography Exam date and time: 11/10/2024 7:03 PM Age: 69 years old Clinical indication: Injury or trauma; Fall; Blunt trauma; Head; Additional info: Trauma, critical injury suspected TECHNIQUE: Imaging protocol: Computed tomographic angiography of the head with contrast. Exam focused on the arteries. 3D rendering (Not supervised by radiologist): MIP and/or 3D reconstructed images were created by the technologist. Radiation optimization: All CT scans at this facility use at least one of these dose optimization techniques: automated exposure control; mA and/or kV adjustment per patient size (includes targeted exams where dose is matched to clinical indication); or iterative reconstruction. Contrast material: ISOVUE; Contrast volume: 80 ml; Contrast route: INTRAVENOUS (IV); COMPARISON: CT HEAD/BRAIN WO CON 11/10/2024 6:56 PM FINDINGS: ANTERIOR CIRCULATION: Right internal carotid artery: Calcification involving the right carotid siphon without significant stenosis. Right middle cerebral artery: No occlusion or significant stenosis. No aneurysm. Right anterior cerebral artery: No occlusion or significant stenosis. No aneurysm. Left internal carotid artery: Intracranial segment is patent with no significant stenosis. No aneurysm. Left middle cerebral artery: No occlusion or significant stenosis. No aneurysm. Left anterior cerebral artery: No occlusion or significant stenosis. No aneurysm. POSTERIOR CIRCULATION: Right vertebral artery: No occlusion or significant stenosis. No aneurysm. Left vertebral artery: No occlusion or significant stenosis. No aneurysm. Basilar artery: No occlusion or significant stenosis. No aneurysm. Right posterior cerebral artery: No occlusion or significant stenosis. No aneurysm. Left posterior cerebral artery: No occlusion or significant stenosis. No aneurysm. IMPRESSION: No hemodynamically significant stenosis or large vessel occlusion.
--- NOTE | 2024-11-10 18:35 | XR_ITS ---
PROCEDURE INFORMATION: Exam: XR Right Hand Exam date and time: 11/10/2024 6:40 PM Age: 69 years old Clinical indication: Injury or trauma; Fall; Blunt trauma (contusions or hematomas); Hand; Right; Additional info: Fall, pain TECHNIQUE: Imaging protocol: Radiologic exam of the right hand. Views: 3 or more views. COMPARISON: CR XR HAND RT MIN 3V 11/10/2024 6:40 PM FINDINGS: Bones/joints: Avulsion fracture of the dorsal aspect of a carpal bone on the lateral view. Precise origin not certain. No other fracture identified. Soft tissues: Normal. IMPRESSION: Avulsion fracture of the dorsal carpal bone area.
--- NOTE | 2024-11-10 18:35 | XR_ITS ---
PROCEDURE INFORMATION: Exam: XR Right Wrist Exam date and time: 11/10/2024 6:42 PM Age: 69 years old Clinical indication: Injury or trauma; Fall; Blunt trauma (contusions or hematomas); Wrist; Right; Additional info: Fall, pain TECHNIQUE: Imaging protocol: Radiologic exam of the right wrist. Views: 3 or more views. COMPARISON: CR XR HAND RT MIN 3V 11/10/2024 6:40 PM FINDINGS: Bones/joints: Possible acute avulsion fracture off of the dorsal aspect of the carpal bones only seen on the lateral view with adjacent soft tissue swelling. Origin of this avulsion fracture not certain. No other fracture seen. Soft tissues: See Bones/joints finding. IMPRESSION: Avulsion fracture of the posterior carpal bones on the lateral view.
[2024-11-10 18:43] LABS: Basophils # 0.1 K/mm3 (0-0.2); Basophils % 0.5 % (0.1-2.0); Eosinophils % 0.1 % (0.1-12.0); Hematocrit 40.8 % (42.0-52.0); Hemoglobin 13.6 g/dL (14.1-18.0); Lymphocytes # 0.9 K/mm3 (0.7-4.5); Mean Corpuscular HGB Conc 33.3 g/dL (31.8-35.4); Mean Corpuscular Hemoglobin 29.4 pg (27.0-31.2); Mean Corpuscular Volume 88.1 fl (80-94); Mean Platelet Volume 9.8 fl (7.4-10.4); Monocytes % 5.7 % (1.7-9.3); Neutrophils # 16.1 K/mm3 (1.8-7.8); Neutrophils % 88.2 % (37.0-80.0); Nucleated Red Blood Cells # 0 10^3/uL; Nucleated Red Blood Cells % 0 %; Platelet Count 233 K/mm3 (142-424); Red Blood Count 4.63 M/mm3 (4.60-6.20); Red Cell Distribution Width 13.3 % (11.5-17.5); Red Cell Distribution Width-SD 43.4 fL; White Blood Count 18.3 K/mm3 (4.8-10.8)
[2024-11-10 18:45] LABS: Albumin Level 4.4 g/dl (3.5-5.0); Chloride 103 mmol/L (98-107); Potassium 3.8 mmoL/L (3.5-5.1); Sodium 137 mmol/L (136-145)
[2024-11-10 18:47] LABS: Alanine Aminotransferase 29 U/L (12-78); Aspartate Amino Transferase 64 U/L (17-59); Blood Urea Nitrogen 17 mg/dl (9-20); Creatinine Clearance Estimated 65 mL/min (50-200); Estimated Glomerular Filt Rate 66 ml/min (>60); GFR (African American) 80 ML/MIN (>60)
[2024-11-10 18:48] LABS: Albumin/Globulin Ratio 1.3 (1.1-1.8); Alkaline Phosphatase 89 U/L (38-126); Anion Gap 9.8 mEq/L (5-15); Bilirubin,Total 0.5 mg/dl (0.2-1.3); Calcium 8.4 mg/dl (8.4-10.2); Carbon Dioxide 28 mmol/L (22.0-30.0); Globulin 3.3 g/dL (1.3-3.2); Glucose 152 mg/dl (74-100); Lipase 67 U/L (23-300); Total Protein,Serum 7.7 g/dl (6.3-8.2)
[2024-11-10 18:54] LABS: INR 0.92 (0.9-1.1); Prothrombin Time 10.4 seconds (10.1-12.5)
[2024-11-10 19:02] LABS: Troponin I < 0.01 ng/ml (0.00-0.034)
[2024-11-10 19:07] LABS: Ethyl Alcohol < 10 mg/dl (0-10)
[2024-11-10] MEDS: ONDANSETRON 4MG/2ML VIAL 4 MG IV (19:08)
[2024-11-10] MEDS: LACTATED RINGERS 1000ML 1,000 ML 999 ML IV (19:08)
[2024-11-10] MEDS: MORPHINE 4MG/ML SYRINGE 4 MG IV ×2 (19:08→21:12)
[2024-11-10] MEDS: IOPAMIDOL-370 (76%);100ML BOTTLE 80 ML IV ×2 (19:13)
[2024-11-10] MEDS: 0.9 % SODIUM CHLORIDE 50 ML VIAL IV ×2 (19:13)
[2024-11-10] MEDS: SODIUM CHLORIDE 0.9% 10ML SYR (RAD ONLY) 10 ML IV (19:13)
[2024-11-10 20:31] LABS: Lactic Acid 1.4 mmol/L (0.7-2.1)
[2024-11-10 20:33] LABS: Hepatitis C Ab Qual. W/ RFX NEGATIVE (Negative)
[2024-11-10 20:42] LABS: HIV Combo NEGATIVE (Negative)
--- NOTE | 2024-11-10 20:57 | PC.NURSE ---
[facility] called for possible transfer.
--- NOTE | 2024-11-10 21:07 | ED_ITS ---
Discharge Plan Disposition Patient Disposition: Xfer Short-Term Hosp Condition: Good Prescriptions Prescriptions: No Action naproxen 500 MG Tablet 500 mg PO NEEDED PRN (Reason: pain) Referrals Follow up/Referrals: Provider,Referral, MD [Primary Care Provider] - See instructions Clinical Impressions Clinical Impression: Sternal fracture, Traumatic hematoma of thoracic region, Closed T4 fracture, Concussion, Closed fracture of right carpal bone Stand Alone Forms Stand Alone Forms: Transfer Record - ED Print Language Print Language: Korean Discharge ED Provider: Heather Dobbs General Adult HPI General Chief complaint: Trauma Alert Stated complaint: Fall Time Seen by Provider: 11/10/24 18:34 Mode of Arrival: Ambulatory Source of Information: Patient, Spouse, Significant Other and Medical Record Limitations: Language Barrier Description of Symptoms (Recalled from ER Triage Doc. by RN): Pt presents to ER as a trauma alert d/t possible fall from height. states he went to trim limbs down at 1630 and came home atapproc 1720 and had bruising and abrasions to face and the top of his head. He does not remember what happened or what he was doing outside. FS 145. He c/o pain to posterior neck, back, and posterior ribs area. Denies any tenderness to abd or pelvis. Denies any drug use. History of Present Illness HPI narrative: This patient is a 69-year-old Korean-speaking male with a history of degenerative disc disease presented to the emergency department for evaluation with concern for traumatic injuries following a likely fall from height. Patient went to trim limbs down with a ladder around 1630 and came home at approximately 1720 with bruising and abrasions to his face, head, neck and had repetitive questioning. He was confused and did not remember what happened or what he was doing outside. Family presumed that he fell from ladder and brought him to the ED for evaluation. He complains of head pain, neck pain, back pain, pain to his chest, and right hand pain. He does not take blood thinners or aspirin, and denies any use of medications at all at home. He does not remember what happened but reportedly was fine prior to this. Related Data Home Medications ?Medication ?Instructions ?Recorded ?Confirmed naproxen 500 mg tablet 500 mg PO NEEDED PRN pain 10/04/17 11/22/18 Allergies Allergy/AdvReac Type Severity Reaction Status Date / Time No Known Allergies Allergy Verified 10/15/17 16:11 [facility] Disclaimer: The information contained in this section may have been updated after the patient was seen, as this information can be updated by other users. Social History Smoking Status: Never smoker second hand exposure: No alcohol intake: never counseling provided: none substance use type: denies use current occupational status: employed Travel in the last 8 weeks: None household members: spouse housing: house current occupational exposures/hazards: No caffeine: Yes Have you lived/traveled outside [place] in past 30 days?: No Contact w/someone who lives/traveled outside [place] past 30 days?: No Exposure to someone with infectious disease in past 14 days?: No Do you have a fever (greater than 100.4 F or 38 C)?: No Have you tested positive for COVID-19: No Exposed to someone with COVID-19 in past 14 days?: No Do you have a sore throat?: No Do you have a cough?: No Do you have any weakness?: No Do you have any diarrhea?: No Are you experiencing any unusual bleeding?: No Do you have any muscle aches/pain?: Yes Do you have any abdominal pain?: No Are you experiencing loss of taste or smell?: No Other Medical History Have you received the Flu Vaccine for this season: No Have you received the Pneumonia Vaccine: Yes ROS Obtained: Yes All systems reviewed & no additional complaints except as documented Physical Exam General General appearance: alert and in no apparent distress Head Head exam: normocephalic and other (Abrasions and bruising to the left face/head) Eye Eye exam: Present normal appearance, PERRL and EOMI ENT ENT exam: Present normal exam, normal oropharynx, mucous membranes moist and normal external ear exam Neck Neck exam: Present trachea midline and other (C-collar applied upon arrival. Some superficial abrasions and bruising to the right neck without midline C- spine tenderness); Absent tenderness Chest Chest inspection: Present symmetric chest wall rise and tenderness Respiratory Respiratory exam: Present normal lung sounds bilaterally; Absent respiratory distress, wheezes, stridor or accessory muscle use Cardiovascular Cardiovascular exam: Present regular rate and normal rhythm Abdominal Exam Abdominal exam: Present soft and tenderness (Upper abdomen); Absent distention or guarding Extremities Exam Extremities exam: Present tenderness (Tenderness to palpation of the right proximal hand/wrist with bruising, all compartment soft, neurovascularly intact distally) and normal capillary refill; Absent edema Back Exam Back exam: Present tenderness (Thoracic) Neurological Exam Neurological exam: Present alert, oriented X3, CN II-XII intact and normal gait; Absent motor sensory deficit Psychiatric Psychiatric exam: Present normal affect and normal mood Skin Skin exam: Present warm and dry Medical Decision Making Medical Records Medical records reviewed: Yes I reviewed the patient's medical records. Screening: Per USPSTF and CDC recommendations, given the prevalence of disease in our region, it is our hospital?s policy to screen for HIV and viral Hepatitis for all patients aged 18 and over and those with ongoing risk factors. Shane Inquiry Pt receiving controlled substance: No Vital Signs: 11/10/24 18:29 11/10/24 18:29 11/10/24 19:30 Temperature 98.6 F 98.6 F Temperature Source Oral Oral Pulse Rate Pulse Rate [Right] 87 87 Respiratory Rate 17 19 Blood Pressure 121/77 Blood Pressure [Right Arm] 154/88 H 154/88 H Blood Pressure Mean 87 Blood Pressure Mean [Right Arm] 110 110 Blood Pressure Source [Right Arm] Manual Cuff/ Auscultation Manual Cuff/ Auscultation 02 Sat by Pulse Oximetry 98 98 Oxygen Delivery Method Room Air Room Air 11/10/24 20:00 11/10/24 20:30 11/10/24 21:00 Temperature Temperature Source Pulse Rate 79 88 Pulse Rate [Right] Respiratory Rate 17 14 Blood Pressure 120/76 107/71 L 115/75 Blood Pressure [Right Arm] Blood Pressure Mean 84 Blood Pressure Mean [Right Arm] Blood Pressure Source [Right Arm] 02 Sat by Pulse Oximetry 98 98 Oxygen Delivery Method 11/10/24 21:30 Temperature Temperature Source Pulse Rate 78 Pulse Rate [Right] Respiratory Rate 14 Blood Pressure 115/78 Blood Pressure [Right Arm] Blood Pressure Mean Blood Pressure Mean [Right Arm] Blood Pressure Source [Right Arm] 02 Sat by Pulse Oximetry 96 Oxygen Delivery Method Lab Data Lab results reviewed: Yes I reviewed the patient's lab results. Lab Results 11/10/24 18:31: WBC 18.3 H, RBC 4.63, Hgb 13.6 L, Hct 40.8 L, MCV 88.1, MCH 29.4, MCHC 33.3, RDW 13.3, Plt Count 233, MPV 9.8, Neut % (Auto) 88.2 H, Lymph % (Auto) 5.0 L, [place] % (Auto) 5.7, Eos % (Auto) 0.1, Baso % (Auto) 0.5, Neut # (Auto) 16.1 H, Lymph # (Auto) 0.9, [place] # (Auto) 1.0, Eos # (Auto) 0.0, Baso # (Auto) 0.1, PT 10.4, INR 0.92, APTT 24.0, Sodium 137, Potassium 3.8, Chloride 103, Carbon Dioxide 28, Anion Gap 9.8, BUN 17, Creatinine 1.10, Estimated Creat Clear 65, Estimated GFR 66, Est GFR ( Amer) 80, Glucose 152 H, Calcium 8.4, Total Bilirubin 0.5, AST 64 H, ALT 29, Alkaline Phosphatase 89, Troponin I < 0.01, Total Protein 7.7, Albumin 4.4, Globulin 3.3 H, Albumin/Globulin Ratio 1.3, Lipase 67, Plasma/Serum Alcohol < 10, HCV Ab SERGIO w/Rflx PCR Qn Negative, HIV Ag/Ab Combo Qual Negative 11/10/24 20:05: Lactate 1.4 11/10/24 21:09: Urine Color Yellow, Urine Appearance Slightly cloudy, Urine pH 8.0, Ur Specific [place] 1.010, Urine Protein Negative, Urine Glucose (UA) Negative, Urine Ketones Trace, Urine Blood 2+ A, Urine Nitrate Negative, Urine Bilirubin Negative, Urine Urobilinogen 0.2, Ur Leukocyte Esterase Negative, Urine RBC 5-10, Urine WBC Occasional, Ur Squamous Epith Cells Occasional, Urine Bacteria Trace, Urine Opiates Screen Positive H, Urine Methadone Screen Negative, Ur Barbituates Screen Negative, Ur Phencyclidine Scrn Negative, Ur Amphetamines Screen Negative, U Benzodiazepines Scrn Negative, Urine Cocaine Screen Negative, U Marijuana (THC) Screen Negative 11/10/24 18:31 11/10/24 18:31 Orders (Tests/Meds): ED MEDICATIONS Generic Name Dose Route Start Last Admin Trade Name Freq PRN Reason Stop Dose Admin Sodium Chloride 10 ml 11/10/24 18:34 Sodium Chloride 0.9% 10ml Flush Syringe IV 12/10/24 18:33 NEEDED PRN Maintain IV Site Discontinued Medications Generic Name Dose Route Start Last Admin Trade Name Hannah PRN Reason Stop Dose Admin Lactated Ringer's 1,000 mls @ 999 mls/hr 11/10/24 18:45 11/10/24 19:08 Lactated Ringer's 1000 Ml Bag IV 11/10/24 19:45 999 mls/hr .Q1H1M [place] Administration Iopamidol 80 ml 11/10/24 19:10 11/10/24 19:13 Iopamidol-370 (76%);100ml Bottle IV 11/10/24 19:11 80 ml ONCE ONE Administration Iopamidol 80 ml 11/10/24 19:11 11/10/24 19:13 Iopamidol-370 (76%);100ml Bottle IV 11/10/24 19:12 80 ml ONCE ONE Administration Morphine Sulfate 4 mg 11/10/24 18:34 11/10/24 19:08 Morphine 4mg/Ml Syringe IV 11/10/24 18:35 4 mg ONCE ONE Administration Morphine Sulfate 4 mg 11/10/24 21:03 11/10/24 21:12 Morphine 4mg/Ml Syringe IV 11/10/24 21:04 4 mg ONCE ONE Administration Ondansetron HCl 4 mg 11/10/24 18:34 11/10/24 19:08 Ondansetron 4mg/2ml Vial IV 11/10/24 18:35 4 mg ONCE ONE Administration Sodium Chloride 50 ml 11/10/24 19:10 11/10/24 19:13 0.9 % Sodium Chloride 50 Ml Vial IV 11/10/24 19:11 50 ml ONCE ONE Administration Sodium Chloride 10 ml 11/10/24 19:10 11/10/24 19:13 Sodium Chloride 0.9% 10ml Syr (Rad Only) IV 11/10/24 19:11 10 ml ONCE ONE Administration Sodium Chloride 50 ml 11/10/24 19:11 11/10/24 19:13 0.9 % Sodium Chloride 50 Ml Vial IV 11/10/24 19:12 50 ml ONCE ONE Administration ORDERS Category Date Time Status CT angio abd/pel - TRAUMA Stat Cat Scan 11/10/24 18:[address] angio chest - dissection Stat Cat Scan 11/10/24 18:[address] angio head Stat Cat Scan 11/10/24 18:[address] angio neck Stat Cat Scan 11/10/24 18:[address] cervical spine wo con Stat Cat Scan 11/10/24 18:[address] head/brain wo con Stat Cat Scan 11/10/24 18:[address] lumbar spine wo con Stat Cat Scan 11/10/24 18:[address] thoracic spine wo con Stat Cat Scan 11/10/24 18:34 Completed Hand XR right minimum 3 views [XR hand RT min 3V] Stat Exams 11/10/24 18:35 Completed POCUS Point of Care (ER Only) Stat Exams 11/10/24 18:35 Taken Wrist XR right minimum 3 views [XR wrist RT min 3V] Exams 11/10/24 18:35 Completed Stat XR chest portable Stat Exams 11/10/24 18:34 Completed XR pelvis 1-2V Stat Exams 11/10/24 18:34 Completed Activated Partial Thrombo Time Stat Lab 11/10/24 18:31 Completed Complete Blood Count Auto Diff Stat Lab 11/10/24 18:31 Completed Comprehensive Metabolic Panel Stat Lab 11/10/24 18:31 Completed Drug Screen,Urine Stat Lab 11/10/24 21:09 Completed Ethyl Alcohol Stat Lab 11/10/24 18:31 Completed HIV Combo Stat Lab 11/10/24 18:31 Completed Hepatitis C Ab Qual. W/ RFX Stat Lab 11/10/24 18:31 Completed Lactic Acid Stat Lab 11/10/24 20:05 Completed Lipase Stat Lab 11/10/24 18:31 Completed Prothrombin Time INR Stat Lab 11/10/24 18:31 Completed Troponin I Q3H Lab 11/10/24 21:45 Ordered Troponin I Q3H Lab 11/11/24 00:45 Ordered Troponin I Stat Lab 11/10/24 18:31 Completed Urinalysis and Microscopic Stat Lab 11/10/24 21:09 Completed ECG Data Tracing #1: I reviewed this ECG and interpreted as documented below: Normal sinus rhythm with a ventricular of [address] changes concerning for STEMI. Normal axis and intervals ECG initial impression date: 11/10/24 ECG initial impression time: 18:30 Medical Decision Narrative: In summary, this patient is a 69-year-old male presenting to the Emergency Department for evaluation of likely fall from a height, though he is amnestic to the event. Patient arrives as a trauma alert. Differential diagnoses considered include but are not limited to head trauma, chest trauma, abdominal trauma, polytrauma. Ruling out the most morbid conditions drove assessment. I reviewed patient's past medical records and noted prior pain management evaluations for degenerative disc disease and osteoarthritis. On exam, the patient ambulated in without significant issue and is neurologically intact. He has abrasions and bruising to the left face, right neck, chest tenderness, mild abdominal tenderness, Back tenderness, right hand injury. Given concern for critical polytrauma, decision was made to trauma alert the patient. I performed bedside E FAST exam which was negative. Vital signs normal on cardiac telemetry upon arrival. Workup included x-rays of the chest, pelvis, and injured right upper extremity as well as full trauma CT scans with angiograms. Patient was given a bolus of IV fluids as well as IV morphine and Zofran for symptomatic improvement. I independently interpreted x-ray and CT prior to the radiologist read and noted right hand fracture, T4 fracture, sternal fracture with retrosternal hematoma. Please see their read for final interpretation. Labs were obtained that demonstrated leukocytosis of 18,000. Coags obtained are normal. Chemistry obtained is reassuring with only very mildly elevated AST but otherwise no acutely concerning abnormalities. Initial troponin negative at less than 0.01. Urinalysis pending. EKG obtained does not demonstrate any acute ST changes On reassessment, patient had some improvement after administration of IV morphine and Zofran but continues to complain of pain, so he was given another dose of IV morphine. Vitals remain normal on cardiac telemetry with no notable dysrhythmia. At this time, I feel patient would benefit from transfer to higher level of care for trauma evaluation given sternal fracture that is comminuted with retrosternal hematoma, T4 fracture, right hand fracture. Patient and family agreeable to this. I called and had an interactive discussion with Dr. Rodriguez in the transfer center who accepted the patient for transfer to [facility] for trauma evaluation. EMS transport was arranged and the patient was transferred in stable condition for polytrauma Procedures Limited Ultrasound Findings:: Limited EFAST ultrasound Indication: Blunt trauma Views: [LUQ, RUQ, Pelvis, Limited Cardiac, Limited Thoracic] Interpretation: Peritoneal Free Fluid: Absent Pericardial effusion: Absent Right thoracic free Fluid: Absent Left thoracic Free Fluid: Absent Right lung pneumothorax: Absent Left Lung pneumothorax: Absent Impression: Negative EFAST ultrasound Images were saved to permanent archive The study was technically adequate CPT 74951-61 (limited cardiac) 52278-44 (limited abdominal) 27984-27 (chest) This study was performed by me, and I personally interpreted all images/videos. Based on my clinical judgement, these images were adequate and did not necessitate further imaging. Critical Care Critical Care Time Critical Care Time: Yes Attestation: On 11/10/24, the high probability of a clinically significant, sudden or life threatening deterioration of the following system(s) required my full and direct attention, intervention and personal management. The time I documented below is in addition to time spent performing reported procedures but includes the following listed in this critical care notation. Total Time Total Critical Care Time: 45
[2024-11-10 21:12] LABS: Microscopic, Urine URINE MICROSCOPIC (MICROSCOPIC)
[2024-11-10 21:16] LABS: Bilirubin,Urine Negative (Negative); Blood, Urine 2+ (Negative); Color,Urine YELLOW (Yellow); Glucose,Urine (UA) Negative (Negative); Ketones,Urine TRACE (Negative); Leukocyte Esterase,Urine Negative (Negative); Nitrate,Urine Negative (Negative); Protein,Urine Negative (Negative); Urobilinogen,Urine 0.2 EU/dl (0.2)
[2024-11-10 21:23] LABS: Appearance,Urine Slightly Cloudy (Clear)
[2024-11-10 21:26] LABS: Bacteria,Urine Trace /lpf; Squamous Epithelial Cell,Urine Occasional #/hpf (0-5); WBC,Urine Occasional #/hpf (0-3)
[2024-11-10 21:27] LABS: Benzodiazepines Screen,Urine Negative ng/ml (<200)
[2024-11-10 21:28] LABS: Amphetamine/Metha Screen,Urine Negative ng/ml (<1000); Barbiturates Screen,Urine Negative ng/ml (<200)
[2024-11-10 21:29] LABS: Cannabinoid Screen,Urine Negative ng/ml (<50)
[2024-11-10 21:30] LABS: Cocaine Screen,Urine Negative ng/ml (<300); Methadone Screen,Urine Negative ng/ml (<300)
[2024-11-10 21:31] LABS: Opiate Screen,Urine Positive ng/ml (<300); Phencyclidine Screen,Urine Negative ng/ml (<25)
[2024-11-10 22:10] LABS: Troponin I < 0.01 ng/ml (0.00-0.034)
== END 2024-11-10 22:34 | disposition short-term general hospital (02) ==
PROVIDERS: Emergency Provider Emergency Medicine
DX: S06.0XAA Concussion with loss of consciousness status unknown, initial encounter (principal); S22.20XA Unspecified fracture of sternum, initial encounter for closed fracture; S22.049A Unspecified fracture of fourth thoracic vertebra, initial encounter for closed fracture; S62.101A Fracture of unspecified carpal bone, right wrist, initial encounter for closed fracture; S20.20XA Contusion of thorax, unspecified, initial encounter; K76.9 Liver disease, unspecified; W17.89XA Other fall from one level to another, initial encounter
CPT/HCPCS: 70450; 70496; 70498; 71045; 71275; 72125; 72128; 72131; 72170; 73110; 73130; 74174; 80053; 80307; 80320; 81001; 83605; 83690; 84484; 85025; 85610; 85730; 86803; 87389; 93005; 96361; 96374; 96375; 96376; 99291; J2270; J2405; J7120; Q9967

== ENCOUNTER 2024-11-13 20:56 | Emergency (ER) | payer MEDICARE, SELFPAY ==
--- NOTE | 2024-11-13 20:59 | ED_ITS ---
<Statement entered by Stuart Mcclure MD - 11/13/24 22:55> DONITA Attestation I was consulted by the DONITA, and we discussed the complexity of problems being addressed. I approved the treatment and management plan for this patient's care in the emergency department, thus performing a substantial portion of the medical decision making. Stuart Mcclure MD Discharge Plan Disposition Patient Disposition: Home, Self-Care Condition: Good Prescriptions Prescriptions: No Action naproxen 500 MG Tablet 500 mg PO NEEDED PRN (Reason: pain) Referrals Follow up/Referrals: Katelyn Fortune MD [Primary Care Provider] - See instructions Activity Restrictions/Add. Instructions Additional Instructions/Restrictions: You should expect 6 to 8 weeks for your fractures to heal. During that time they may hurt periodically. I recommend taking Tylenol initially for your discomfort along with all of the other medications you was prescribed at the [facility] including muscle relaxer topical numbing patches etc. If you have continued new or worsening signs or symptoms follow-up with your PCP or return to the ER as needed. Clinical Impressions Clinical Impression: Muscle spasm of back, Sternal fracture, Closed wedge compression fracture of T4 vertebra Print Language Print Language: Turkish Discharge ED Provider: Stuart Mcclure General Adult HPI <ALURA Yap - Last Filed: 11/13/24 21:23> General Chief complaint: Extremity Injury, Upper Stated complaint: Right shoulder pain Time Seen by Provider: 11/13/24 20:59 History of Present Illness HPI narrative: Patient presents for evaluation of right upper back muscle spasms. Patient fell approximately 20 feet out of a tree on Wednesday. He had initial trauma workup here and ultimately was transferred to the [facility]. He suffered a T4 fracture as well as a body of the sternal fracture but ultimately was discharged home with Robaxin and oxycodone Lidoderm patches and Zofran. Patient has been doing okay by his evaluation but began having right upper back pain that he describes as a muscle spasm. He denies any numbness tingling loss of motor or sensory. He states his medication regimen currently is only helping a little bit . He denies shortness of breath fever chills hemoptysis hematochezia melena nausea vomiting diarrhea. Related Data Home Medications ?Medication ?Instructions ?Recorded ?Confirmed naproxen 500 mg tablet 500 mg PO NEEDED PRN pain 10/04/17 11/22/18 Allergies Allergy/AdvReac Type Severity Reaction Status Date / Time No Known Allergies Allergy Verified 10/15/17 16:11 PFSH <LAURA Yap - Last Filed: 11/13/24 21:23> [facility] Disclaimer: The information contained in this section may have been updated after the patient was seen, as this information can be updated by other users. Social History Smoking Status: Never smoker second hand exposure: No alcohol intake: never counseling provided: none substance use type: denies use current occupational status: employed Travel in the last 8 weeks: None household members: spouse housing: house current occupational exposures/hazards: No caffeine: Yes Have you lived/traveled outside [place] in past 30 days?: No Contact w/someone who lives/traveled outside [place] past 30 days?: No Exposure to someone with infectious disease in past 14 days?: No Do you have a fever (greater than 100.4 F or 38 C)?: No Have you tested positive for COVID-19: No Exposed to someone with COVID-19 in past 14 days?: No Do you have a sore throat?: No Do you have a cough?: No Do you have any weakness?: No Do you have any diarrhea?: No Are you experiencing any unusual bleeding?: No Do you have any muscle aches/pain?: No Do you have any abdominal pain?: No Are you experiencing loss of taste or smell?: No Other Medical History Have you received the Flu Vaccine for this season: No Have you received the Pneumonia Vaccine: Yes <LAURA Yap - Last Filed: 11/13/24 21:23> ROS Obtained: Yes Systems reviewed as appropriate & no additional complaints except as documented Physical Exam <LAURA Yap - Last Filed: 11/13/24 21:23> General General appearance: alert and in no apparent distress Respiratory Respiratory exam: Present normal lung sounds bilaterally Cardiovascular Cardiovascular exam: Present regular rate Neurological Exam Neurological exam: Present alert and oriented X3 <Stuart Mcclure MD - Last Filed: 11/13/24 22:56> Back Exam Back exam: Present paraspinal tenderness (Right cervical thoracic region) Medical Decision Making <LAURA Yap - Last Filed: 11/13/24 21:23> Medical Records Medical records reviewed: Yes I reviewed the patient's medical records. Screening: Per USPSTF and CDC recommendations, given the prevalence of disease in our region, it is our hospital?s policy to screen for HIV and viral Hepatitis for all patients aged 18 and over and those with ongoing risk factors. Shane Inquiry Pt receiving controlled substance: No Vital Signs: 11/13/24 21:04 11/13/24 21:07 11/13/24 21:35 Temperature 97.8 F 97.8 F Temperature Source Oral Pulse Rate 78 Pulse Rate [Radial] 67 Pulse Rate [Right Radial] 67 Respiratory Rate 18 14 Blood Pressure 138/74 Blood Pressure [Left Arm] 149/80 H Blood Pressure Mean [Left Arm] 103 Blood Pressure Position Sitting Blood Pressure Position [Left Arm] Sitting 02 Sat by Pulse Oximetry 99 Oxygen Delivery Method Room Air Room Air Orders (Tests/Meds): ED MEDICATIONS Discontinued Medications Generic Name Dose Route Start Last Admin Trade Name Freq PRN Reason Stop Dose Admin Diazepam 5 mg 11/13/24 21:15 11/13/24 21:20 Diazepam 5mg Tablet PO 11/13/24 21:16 5 mg ONCE ONE Administration Ketorolac Tromethamine 30 mg 11/13/24 21:15 11/13/24 21:20 Ketorolac 30mg/Ml Vial IM 11/13/24 21:16 30 mg ONCE ONE Administration Medical Decision Narrative: In summary patient is a 69-year-old male who presents to the emergency department for evaluation of muscle spasms of the right upper back. Patient is hemodynamically stable upon arrival, afebrile. Physical exam reveals tenderness to palpation in the trapezius muscle medial to the scapula and lateral to the dorsal spine. There is no evidence of contusions abrasions edema swelling ecchymosis. Patient is neurovascularly intact in all 4 extremities full range of motion in all 4 extremities.. Differential diagnosis includes muscle spasm versus referred fracture pain etc. Initial workup was considered with labs and imaging however patient has been fully evaluated with trauma scans and he has hurting at the level of the T4 vertebra which is consistent with his fracture and it is in the musculature and not in the bony abnormality. Having said that I reviewed all of his imaging and there is no evidence of other fracture including ribs previously imaged. Initial interventions include Valium and IM Toradol. Given that we had a shared decision-making discussion with the patient and we reassured him that this is a normal expected course given the mechanism of his injury 20 foot fall with a T4 fracture and a sternal body fracture is likely going to have symptoms for a month or more as it continues to heal. I have recommended taking Tylenol every 8 hours instead of as needed and as well as the remainder of his multimodal medication regimen of Robaxin and oxycodone for severe pain and Lidoderm patches. I have advised the patient to follow-up closely with his PCP as he may need further intervention like physical therapy. Patient verbalized understanding and agreement. Thus patient is appropriate for discharge with close follow-up with his PCP for any needed ongoing management care and returning to the ER as needed. <Stuart Mcclure MD - Last Filed: 11/13/24 22:56> Vital Signs: 11/13/24 21:04 11/13/24 21:07 11/13/24 21:35 Temperature 97.8 F 97.8 F Temperature Source Oral Pulse Rate 78 Pulse Rate [Radial] 67 Pulse Rate [Right Radial] 67 Respiratory Rate 18 14 Blood Pressure 138/74 Blood Pressure [Left Arm] 149/80 H Blood Pressure Mean [Left Arm] 103 Blood Pressure Position Sitting Blood Pressure Position [Left Arm] Sitting 02 Sat by Pulse Oximetry 99 Oxygen Delivery Method Room Air Room Air Orders (Tests/Meds): ED MEDICATIONS Discontinued Medications Generic Name Dose Route Start Last Admin Trade Name Hannah PRN Reason Stop Dose Admin Diazepam 5 mg 11/13/24 21:15 11/13/24 21:20 Diazepam 5mg Tablet PO 11/13/24 21:16 5 mg ONCE ONE Administration Ketorolac Tromethamine 30 mg 11/13/24 21:15 11/13/24 21:20 Ketorolac 30mg/Ml Vial IM 11/13/24 21:16 30 mg ONCE ONE Administration Critical Care <LAURA Yap - Last Filed: 11/13/24 21:23> Critical Care Time Critical Care Time: No
[2024-11-13 21:04] VITALS: BP 149/80; PULSE 67; RESP 18; TEMP 36.6; O2SAT 99; BMI 25.7
[2024-11-13 21:07] VITALS: PULSE 67
[2024-11-13] MEDS: diazePAM 5MG TABLET 5 MG PO (21:20)
[2024-11-13] MEDS: KETOROLAC 30MG/ML VIAL 30 MG IM (21:20)
[2024-11-13 21:35] VITALS: BP 138/74; PULSE 78; RESP 14; TEMP 36.6; O2SAT 100
== END 2024-11-13 21:36 | disposition home or self-care (01) ==
PROVIDERS: Emergency Provider Student in an Organized Health Care Education/Training Program; PCP Family Medicine
DX: M62.830 Muscle spasm of back (principal); S22.040A Wedge compression fracture of fourth thoracic vertebra, initial encounter for closed fracture; S20.223A Contusion of bilateral back wall of thorax, initial encounter; W17.89XA Other fall from one level to another, initial encounter
CPT/HCPCS: 96372; 99283; J1885